=== PATIENT | male | born 1960 | race American Indian/Alaskan Native ===

== ENCOUNTER 2021-11-18 12:43 | Emergency (ER) | payer MEDICAID ==
--- NOTE | 2021-11-18 12:50 | Emergency Department Report ---
ED CPR HPI - General Chief Complaint: Cardiac Arrest/CPR Stated Complaint: CARDIAC ARREST Time Seen by Provider: 11/18/21 12:45 Source: EMS - History of Present Illness Initial Comments: Patient is 61 years old male with unknown past medical history. Patient brought to the emergency room via EMS from a local shelter and a full cardiac arrest. EMS reported that patient found unresponsive by the shelter staff. ACLS protocol immediately started by EMS and patient intubated. EMS reported that initial rhythm was PEA, junctional rhythm. Patient received 5 mg of epinephrine in route and 1 of sodium bicarb. According to the EMS patient regained his pulse just approaching the ER however when we checked patient patient does not have a pulse. ACLS protocol continued in the ER and patient received another 2 mg of epinephrine, calcium chloride. Unfortunately patient remained asystole. Patient pronounced at 12:44 PM. For further information please refer to code sheets. No family available at this time. MD Complaint: found unresponsive -: unknown Initial Findings in the Field: unresponsive, no pulse, PEA ROSC in the Field: No Treatments Prior to Arrival: intubation, chest compressions, epinephrine mgs # (5), sodium bicarbonate ED Review of Systems ROS: Stated complaint: CARDIAC ARREST Other details as noted in HPI Comment: Unobtainable due to pts medical conditions ED Physical Exam - General General appearance: other - Head Head exam: Present: atraumatic (CPR in progress.), normocephalic, normal inspection - Eye Pupils: Present: other (4 mm fixed and dilated.) - Respiratory Respiratory exam: Present: other (No spontaneous breathing.) - Cardiovascular Cardiovascular Exam: Present: other (No spontaneous heart tone.) - GI/Abdominal GI/Abdominal exam: Present: soft. Absent: distended - Neurological Exam Neurological exam: Present: other (CPR in progress.) - Skin Skin exam: Present: warm Critical Care Time: Yes Critical care time in (mins) excluding proc time.: 35 Critical care attestation.: If time is entered above; I have spent that time in minutes in the direct care of this critically ill patient, excluding procedure time. ED Disposition Clinical Impression: Cardiopulmonary arrest Disposition: 20 Is pt being admited?: No Condition: Stable
== END 2021-11-18 17:55 ==
LOC: ED 12:43
DX: I46.9 Cardiac arrest, cause unspecified (principal)
CPT/HCPCS: 92950; 99285